=== PATIENT | female | born 1985 | race Hispanic/Latino ===

== ENCOUNTER 2022-12-30 12:43 | Inpatient (IN) | payer OTHER ==
[~2022-12-30] VITALS: Ht 165.1 cm; Wt 88.0 kg
[~2022-12-30 12:43] MED LIST: KEFLEX500 MG PO
--- NOTE | 2023-01-09 08:53 | NUR ---
01/09/23 0853 Tika Maya 0844- PT ARRIVES TO PACU AWAKE AND TALKING. FATHER HOLDING THE BABY. PT REPORTS NO PAIN OR NAUSEA. RESP EVEN AND UNLABORED. OXYGEN SAT HIGH 90'S ON RA. 18G IV INFUSING LR AND PITOCIN INTO THE LEFT WRIST WNL. NO REDNESS OR SWELLING NOTED. 0851- BABY TO BREAST WITH FBC RN.
--- NOTE | 2023-01-10 07:47 | PR ---
[facility] [address] [facility] [place], [place] [address] Signed PP Progress Notes Datetime Report Generated by MARYANNE: 01/10/2023 07:47 SUBJECTIVE: [id number] Vital Signs: [id number] IMPRESSION/PLAN/PROCEDURES: [id number] Progress Notes: Pt is a G4 now P4004 POD#1 s/p RLTCS @ 39 weeks gestation -hgb 7.5 from 9.6 on admission, acute blood loss anemia on chronic anemia of -A+/ RI Signing Physician: Jaylan Baker DO Copies: ~ *Electronically Signed* 01/10/23746 JAYLAN BAKER DO PATIENT NAME: CATRACHO ERWINTREVOR PROGRESS NOTE DATE OF : 89 PHYSICIAN: JAYLAN BAKER DO RPT #: [id number] REPORT IS CONFIDENTIAL AND NOT TO BE RELEASED WITHOUT AUTHORIZATION
--- NOTE | 2023-01-11 09:05 | PR ---
[facility] [address] [place], [place] [address] Signed PP Progress Notes Datetime Report Generated by CPN: 01/11/2023 09:05 SUBJECTIVE: [id number] Pain: Within Normal Limits Nausea/Vomiting: Denies Flatus: Yes Bowel Movement: No Vital Signs: [id number] Vital Signs: Reviewed; Within Normal Limits Cardiovascular: Normal Respiratory: Normal Abdomen/Uterus: Normal Lochia: Normal Vulva/Perineum: Not Done CVA Tenderness: Normal Extremities: Normal Incision: Normal Progress: Normal Exam Comments: Fundus firm U-2 nontender. Incisions healing well. IMPRESSION/PLAN/PROCEDURES: [id number] Impression: Normal Progression Plan: Remove Marcus; Discharge Other Procedures: s/p iron infusion Progress Notes: Pt seen and examined. Doing well. Ambulating, voiding, and tolerating full diet. Pain and lochia minimal. well. S/P iron infusion yesterday for symptomatic blood loss anemia. Pt tolerated infusion well and feels much better today. Some lightheadedness w/ ambulation. Pt declines repeat CBC/ferritin and desires d/c home. Planning vasectomy for pp contraception. Signing Physician: Yared Levi DO Copies: ~ *Electronically Signed* 01/11/23904 YARED LEVI (MARKEL) DO PATIENT NAME: TREVOR GRIER PROGRESS NOTE DATE OF : 89 PHYSICIAN: YARED LEVI (JD) DO RPT #: [id number] REPORT IS CONFIDENTIAL AND NOT TO BE RELEASED WITHOUT AUTHORIZATION
== END 2023-01-11 09:50 | disposition home or self-care (01) | DRG 787 ==
LOC: FBC 01-09 02:46
PROVIDERS: ADMIT Obstetrics & Gynecology; ATTEND Obstetrics & Gynecology
PROC: 10D00Z1 Extraction of Products of Conception, Low, Open Approach (ICD-10-PCS; principal; 2023-01-09 07:30)
DX: O34.211 Maternal care for low transverse scar from previous cesarean delivery (principal); D62 Acute posthemorrhagic anemia; O77.0 Labor and delivery complicated by meconium in amniotic fluid; O99.02 Anemia complicating childbirth; Z3A.39 39 weeks gestation of pregnancy; Z37.0 Single live birth; Z67.10 Type A blood, Rh positive; Z87.891 Personal history of nicotine dependence
CPT/HCPCS: 01961; 36415; 76942; 85027; 86850; 86900; 86901; A9270; J0690; J1100; J1650; J1885; J2274; J2370; J2405; J2795; J3010; J7121; Q0138